=== PATIENT | female | born 1950 | race Caucasian/White ===

== ENCOUNTER → 2017-10-04 13:37 | Outpatient (CLI) | payer BC ==
[~2017-10-04 13:37] MED LIST: ALENDRONATE SOD70 MG PO; BIOTIN5 MG PO; CALCIUM 600 +1 EAC3 PO; HYDROCODONE-APA1 TAB PO; VITAMIN D3400 UNI1 PO
[2017-10-25 13:16] VITALS: BMI 22.3
== END | disposition home or self-care (01) ==
LOC: D.MRI 13:37
DX: M75.41 Impingement syndrome of right shoulder (principal)

== ENCOUNTER 2017-10-25 06:41 | Day surgery (SDC) | payer BC ==
[2017-10-22 15:11] LABS: HEMATOCRIT 38.6 % (36.0-48.0); HEMOGLOBIN 12.7 g/dL (12-16); MCH 31.1 pg (26.0-34.0); MCHC 32.9 g/dL (31.0-37.0); MCV 94.6 fL (80.0-100.0); MEAN PLATELET VOLUME 10.7 fL (7.4-10.4); RBC 4.08 10x6/uL (4.00-5.40); RDW 12.4 % (11.5-14.5); WBC 5.3 10x3/uL (4.8-10.8)
[~2017-10-25] VITALS: Ht 162.6 cm; Wt 59.0 kg
--- NOTE | ~2017-10-25 | OP ---
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 PROCEDURES: 1. Arthroscopic subacromial decompression of the right shoulder. 2. Arthroscopic distal clavicle excision of the right shoulder done through separate incision -- 1 cm. SURGEON: Inna Moffett MD ANESTHESIA: General. INTRAOPERATIVE COMPLICATIONS: None. SUMMARY OF PATHOLOGIC FINDINGS: The patient had severe impingement syndrome with attritional tearing of the rotator cuff. No full-thickness tearing was noted. 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 OPERATIVE SUMMARY IN DETAIL: After obtaining the appropriate preoperative orthopedic surgery consent as well as anesthetic consultation, evaluation and clearance, the patient was brought to the operating room and placed on the operating table in supine position. After general laryngeal mask airway was administered, the patient was placed in a left lateral decubitus position. All pressure points were well padded to include down leg peroneal pad as well as axillary roll. The patient was held firmly to the operating table using the vacuum pack suction system. Right upper extremity and shoulder were then prepped and draped in routine sterile fashion. The arm was held in the Arthrex traction boom at 30 degrees of forward flexion, 30 degrees of abduction, and 10 pounds of traction laterally. Arthroscopy was established in the glenohumeral joint from a posterior portal. Anterior portal was established in the anterior safe interval. Diagnostic arthroscopy showed absolutely no undersurface rotator cuff tearing. Attention was turned to the subacromial space. While in the subacromial space, accessory lateral portal was created. Through which, [place] tissue ablation system was utilized to denude the undersurface of the acromion of all soft tissue elements. A 5.0 barrel bur was used to perform acromioplasty at the level of acromioclavicular joint. Through a separate anterior arthroscopic portal, distal clavicle was excised using the 5.0 barrel bur for 1 cm. Lastly, hemorrhagic bursa was taken down anteriorly, posteriorly, laterally and superiorly. The rotator cuff was thoroughly evaluated and did not seem to have any full-thickness tearing. Having completed this, arthroscopy portals were closed in a routine interrupted fashion using 4-0 Prolene. Sterile dressings were applied. The patient was awakened and taken to the recovery room in stable condition. All final needle and sponge counts were correct. OPERATIVE REPORT [id number] OTTAMPARO KAY TRANSINT:[id number] Voice Confirmation ID: [id number] DOCUMENT ID: [id number] ZUHAIR ROTHMAN, INNA ROSEN at 1207 CC: [id number] DICTATION DATE: 10/25/17 1736 MARINATOR: 10/25/171912 [facility] 10/25/17 [facility] [address] [place] [address]
[~2017-10-25 06:41] MED LIST changes: -HYDROCODONE-APA1 TAB PO
[2017-10-25 13:16] VITALS: BP 120/60; Ht 162.6 cm; Wt 59.0 kg
[2017-10-25] MEDS ORDERED: HYDROCODONE-APA1 TAB PO (17:33)
== END 2017-10-25 19:00 | disposition home or self-care (01) ==
LOC: D.OPS 06:41
PROVIDERS: Anesthesiology
DX: M75.41 Impingement syndrome of right shoulder (principal); M13.811 Other specified arthritis, right shoulder; M75.111 Incomplete rotator cuff tear or rupture of right shoulder, not specified as traumatic; M75.51 Bursitis of right shoulder; M94.211 Chondromalacia, right shoulder; Z01.812 Encounter for preprocedural laboratory examination

== ENCOUNTER 2018-12-01 08:05 | Day surgery (SDC) | payer BC ==
[2018-11-30 09:46] LABS: HEMATOCRIT 39.3 % (36.0-48.0); MCH 31.3 pg (26.0-34.0); MCHC 33.1 g/dL (31.0-37.0); MCV 94.5 fL (80.0-100.0); RBC 4.16 10x6/uL (4.00-5.40); RDW 12.8 % (11.5-14.5); WBC 6.7 10x3/uL (4.8-10.8)
[~2018-12-01] VITALS: Ht 162.6 cm; Wt 59.4 kg
[~2018-12-01 08:05] MED LIST changes: +HYDROCODONE-APA1 TAB PO; +MAGNESIUM OXID250 MG PO
[2018-12-01 08:40] VITALS: BP 143/70; Ht 162.6 cm; Wt 59.4 kg
[2018-12-01] MEDS ORDERED: HYDROCODON-ACE1 EA10 PO (14:55)
--- NOTE | 2018-12-01 16:54 | NUR ---
1621 IV DC'D. CATHETER INTACT. MINIMAL BLEEDING NOTED AND PRESSURE APPLIED UNTIL STOPPED. BANDAID APPLIED.
--- NOTE | 2018-12-01 16:58 | NUR ---
5946 DISCHARGE INSTRUCTIONS GIVEN AND PT VERBALIZES UNDERSTANDING. NO POST OP COMPLICATIONS. TOLERATED FULL LIQUID DIET. NO NAUSEA OR VOMITING. VOICES DESIRE TO GO HOME.
--- NOTE | 2018-12-05 09:18 | OP ---
PATIENT NAME: AMPARO OTT MEDICAL RECORD: [id number] :52 LOCATION:[facility] ADMISSION DATE: SURGEON: INNA MOFFETT MD DATE OF OPERATION: 12/01/2018 PREOPERATIVE DIAGNOSIS: Trigger finger, right ring. POSTOPERATIVE DIAGNOSIS: Trigger finger, right ring. PROCEDURE: A1 bridger release of the right ring finger. SURGEON: Inna Moffett MD ANESTHESIA: General. INTRAOPERATIVE COMPLICATIONS: None. SUMMARY OF PATHOLOGIC FINDINGS: The patient had a very tight A1 bridger consistent with preoperative diagnosis. OPERATIVE SUMMARY IN DETAIL: After obtaining the appropriate preoperative orthopedic surgery consent as well as anesthetic consultation, evaluation and clearance, the patient was brought to the operating room and placed on the operating table in supine position. After general laryngeal mask airway was administered, tourniquet was placed about the proximal aspect of the right upper extremity. Right upper extremity was then prepped and draped in a routine sterile fashion. The arm was elevated and exsanguinated. Tourniquet inflated to 250 mmHg. An incision was made directly over the A1 bridger, taken down to the level of the A1 bridger. Care was taken to divide the nerves. The A1 bridger was then incised in its entirety. The tendon was visualized, had some attritional changes, but no full thickness tearing. The wound was then irrigated and closed with 4-0 Prolene. The area was locally infiltrated with 0.25% Marcaine plain. Sterile dressings were applied. Tourniquet was deflated. The patient was awakened and taken to recovery room in stable condition. All final needle and sponge counts were correct. TRANSINT:[id number] Voice Confirmation ID: [id number] DOCUMENT ID: [id number] INNA MOFFETT MD at 0918 CC: [id number] DICTATION DATE: 12/02/18 0959 ELEVATOR PILOT: 12/02/18 [id number] [facility] 12/01/18 [place] [id number]
== END 2018-12-01 17:00 | disposition home or self-care (01) ==
LOC: D.OPS 08:05 → D.PAN 10:55 → D.OPS 11:15 → D.PAN 11:15 → D.OPS 14:20
PROVIDERS: Anesthesiology
DX: M65.341 Trigger finger, right ring finger (principal)